=== PATIENT | male | born 1975 | race American Indian/Alaskan Native ===

== ENCOUNTER 2017-10-13 18:08 | Emergency (ER) | payer SELFPAY ==
[2017-10-13 18:24] VITALS: BP 162/99
[2017-10-13] MEDS ORDERED: TORADOL IM ONE (19:48)
--- NOTE | 2017-10-13 19:55 | Emergency Department Report ---
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 felt a strain and had immediate back spasm since has attempted Tylenol with minimal improvement pain is 4/10 radiating to left lower extremity there is no numbness no tingling or weakness no loss of decrease in bowel or bladder function this flash same location as usual flare same intensity MD Complaint: back pain, back injury Onset/Timin -: week(s) Similar Symptoms Previously: Yes Place: work Radiation: left leg Severity: moderate Severity scale (0 -10): 4 Quality: burning, aching Consistency: intermittent Improves With: other (rest heat application ) Worsens With: movement, walking, other (bending and twisting ) Context: while lifting, turning/twisting Associated Symptoms: denies: weakness, chest pain, numbness, difficulty walking , difficulty urinating, diaphoresis, incontinence, fever/chills, constipation, headaches, abdominal pain, loss of appetite, malaise, nausea/vomiting, seizure, shortness of breath - Related Data Previous Rx's Medication Instructions Recorded Last Taken Type Cyclobenzaprine [Flexeril] 10 mg PO BID PRN #20 tablet 10/13/17 Unknown Rx Menthol/Camphor [Montgomery Hensel 1 applicatio TP TID PRN #1 tube 10/13/17 Unknown Rx Ointment] Naproxen [Naprosyn] 500 mg PO BID #30 tablet 10/13/17 Unknown Rx Allergies Allergy/AdvReac Type Severity Reaction Status Date / Time No Known Allergies Allergy Unverified 10/13/17 18:24 ED Review of Systems ROS: Stated complaint: BACK PAIN/SPASMS Other details as noted in HPI Constitutional: denies: chills, fever Eyes: denies: eye pain, eye discharge, vision change ENT: denies: ear pain, throat pain Respiratory: denies: cough, shortness of breath, wheezing Cardiovascular: denies: chest pain, palpitations Endocrine: no symptoms reported Gastrointestinal: denies: abdominal pain, nausea, diarrhea Genitourinary: denies: urgency, dysuria Musculoskeletal: back pain, arthralgia, myalgia Skin: denies: rash, lesions Neurological: denies: weakness, numbness, paresthesias, abnormal gait, vertigo Psychiatric: denies: anxiety, depression Hematological/Lymphatic: denies: easy bleeding, easy bruising ED Past Medical Hx - Past Medical History Hx Hypertension: Yes Additional medical history: recurrent back pain with sciatica - Surgical History Past Surgical History?: Yes Additional Surgical History: right knee - Social History Smoking Status: Current Every Day Smoker Substance Use Type: Alcohol - Medications Home Medications: Home Medications Medication Instructions Recorded Confirmed Last Taken Type Cyclobenzaprine [Flexeril] 10 mg PO BID PRN #20 tablet 10/13/17 Unknown Rx Menthol/Camphor [Montgomery Hensel 1 applicatio TP TID PRN #1 tube 10/13/17 Unknown Rx Ointment] Naproxen [Naprosyn] 500 mg PO BID #30 tablet 10/13/17 Unknown Rx ED Physical Exam - General Limitations: No Limitations General appearance: alert, in no apparent distress - Head Head exam: Present: atraumatic, normocephalic - Eye Eye exam: Present: normal appearance - ENT ENT exam: Present: mucous membranes moist - Neck Neck exam: Present: normal inspection - Respiratory Respiratory exam: Present: normal lung sounds bilaterally. Absent: respiratory distress - Cardiovascular Cardiovascular Exam: Present: regular rate, normal rhythm. Absent: systolic murmur, diastolic murmur, rubs, gallop - GI/Abdominal GI/Abdominal exam: Present: soft, normal bowel sounds - Rectal Rectal exam: Present: deferred - Extremities Exam Extremities exam: Present: normal inspection, full ROM, tenderness, normal capillary refill. Absent: pedal edema, joint swelling, calf tenderness - Back Exam Back exam: Present: tenderness (no posterior vertebral point tenderness mild paraspinus muscle tenderness to deep palpation post straight leg raise left, ) , muscle spasm, paraspinal tenderness. Absent: CVA tenderness (R), CVA tenderness (L), vertebral tenderness, rash noted - Expanded Back Exam Expanded Back exam: Absent: saddle anesthesia Back exam: Positive Straight Leg Raise: Left, Negative Straight Leg Raising: Right ED Course Vital Signs 10/13/17 18:21 Temperature 98.8 F Pulse Rate 68 Respiratory 18 Rate Blood Pressure 162/99 O2 Sat by Pulse 99 Oximetry ED Medical Decision Making - Medical Decision Making Improved with NSAIDs, no symptoms of cauda equina plan DC to home in stable condition with NSAID and muscle relaxants back exercises and moist heat therapy follow with PCP in 2-3 days patient verbalizes understanding and agreement discharge plan will be DC'd to home in stable condition at this time Critical care attestation.: If time is entered above; I have spent that time in minutes in the direct care of this critically ill patient, excluding procedure time. ED Disposition Clinical Impression: Lumbar strain Qualifiers: Encounter type: initial encounter Qualified Code(s): S39.012A - Strain of muscle, fascia and tendon of lower back, initial encounter Disposition: DC-01 TO HOME OR SELFCARE Is pt being admited?: No Does the pt Need Aspirin: No Condition: Good Instructions: Low Back Strain (ED), Core Strengthening Exercises (GEN), Heat Pack Application (ED) Prescriptions: Cyclobenzaprine [Flexeril] 10 mg PO BID PRN #20 tablet PRN Reason: Muscle Spasm Menthol/Camphor [Montgomery Hensel Ointment] 1 applicatio TP TID PRN #1 tube PRN Reason: Pain , Severe (7-10) Naproxen [Naprosyn] 500 mg PO BID #30 tablet [facility] - [facility]5 Days Forms: Work/School Release Form(ED) Time of Disposition: 19:59
== END 2017-10-13 20:10 | disposition home or self-care (01) ==
LOC: ED 18:08
DX: S39.012A Strain of muscle, fascia and tendon of lower back, initial encounter (principal); I10 Essential (primary) hypertension; F17.200 Nicotine dependence, unspecified, uncomplicated; M54.40 Lumbago with sciatica, unspecified side; X50.1XXA Overexertion from prolonged static or awkward postures, initial encounter; Y93.89 Activity, other specified; Y92.009 Unspecified place in unspecified non-institutional (private) residence as the place of occurrence of the external cause; Y99.8 Other external cause status
CPT/HCPCS: 96372; 99282; J1885

== ENCOUNTER 2019-02-09 10:06 | Emergency (ER) | payer OTHER ==
--- NOTE | 2019-02-09 10:26 | Event Note ---
ED Screening Note ED Screening Note: pt presents for penile discharge no dysuria no pain or swelling testicles no abd pain no v/d no fever hx of HTN, was previously on amlodipine, has not taken it since 3 years ago BP is 200/116 in triage This initial assessment/diagnostic orders/clinical plan/treatment(s) is/are subject to change based on patients health status, clinical progression and re- assessment by fellow clinical providers in the ED. Further treatment and workup at subsequent clinical providers discretion. Patient/guardian urged not to elope from the ED as their condition may be serious if not clinically assessed and managed.
[2019-02-09] MEDS ORDERED: LIDOCAINE-MPF (1%) 10 MG/1 ML VIAL 5 ML INFILTRATI ONE (10:46)
[2019-02-09] MEDS ORDERED: cloNIDine 0.1 MG TAB PO ONE (10:46)
[2019-02-09] MEDS ORDERED: AZITHROMYCIN 1 GM ORAL PWDR PACKET PO ONE (10:46)
--- NOTE | 2019-02-09 10:55 | Emergency Department Report ---
HPI - General Chief Complaint: Urogenital-Male Time Seen by Provider: 02/09/19 10:40 - HPI HPI: 42-year-old -[place] male presents to the emergency department with a complaint of a 3 to four-day history of some penile discharge. He says that is mostly clear but sometimes it has a yellowish to white appearance. He denies any genital lesions or rash. He denies any burning with urination. The patient is sexually active and says it is with one partner. No previous history of any STD. He does present with very elevated blood pressure with a history of hypertension but he is not on any medications. He is a tobacco smoker. He also admits to some caffeine intake. He denies any headache, vision change, chest pain, shortness of breath. He has not taken anything for her symptoms prior to presentation today. ED Past Medical Hx - Past Medical History Previous Medical History?: No Hx Hypertension: Yes Additional medical history: recurrent back pain with sciatica - Surgical History Past Surgical History?: Yes Additional Surgical History: right knee - Social History Smoking Status: Current Every Day Smoker Substance Use Type: None - Medications Home Medications: Home Medications Medication Instructions Recorded Confirmed Last Taken Type Cyclobenzaprine [Flexeril] 10 mg PO BID PRN #20 tablet 10/13/17 Unknown Rx Menthol/Camphor [[place] 1 applicatio TP TID PRN #1 tube 10/13/17 Unknown Rx Ointment] Naproxen [Naprosyn] 500 mg PO BID #30 tablet 10/13/17 Unknown Rx Amlodipine Besylate [Norvasc] 5 mg PO QDAY #30 tablet 02/09/19 Unknown Rx ED Review of Systems ROS: Stated complaint: BLADDER INFECTION/DISCHARGE Other details as noted in HPI Comment: All other systems reviewed and negative Constitutional: denies: chills, fever Eyes: denies: vision change Respiratory: denies: shortness of breath Cardiovascular: denies: chest pain Gastrointestinal: denies: abdominal pain Genitourinary: discharge. denies: dysuria Skin: denies: rash Neurological: denies: headache Physical Exam - Physical Exam Vital Signs: Vital Signs 02/09/19 10:23 Temperature 98.4 F Pulse Rate 93 H Respiratory 18 Rate Blood Pressure 200/116 O2 Sat by Pulse 99 Oximetry Physical Exam: GENERAL: The patient is well-developed well-nourished. HENT: Normocephalic. Atraumatic. Patient has moist mucous membranes. EYES: Extraocular motions are intact. NECK: Supple. Trachea is midline. ABDOMEN: There is no abdominal distention. SKIN: Skin is warm and dry. NEURO: The patient is awake, alert, and oriented. The patient is cooperative. The patient has no focal neurologic deficits. Normal speech. MUSCULOSKELETAL: There is no tenderness or deformity. There is no evidence of acute injury. deferred ED Course Vital Signs 02/09/19 10:23 Temperature 98.4 F Pulse Rate 93 H Respiratory 18 Rate Blood Pressure 200/116 O2 Sat by Pulse 99 Oximetry ED Medical Decision Making - Medical Decision Making This patient presents with the complaint of some penile discharge. He was found have very elevated blood pressure with what appears to be some medication noncompliance. He has no other physical complaints that would be related to the hypertension including any chest pain, headache or shortness of breath. He was given a dose of Catapres and decrease the systolic pressure came down. The patient was empirically treated with some Rocephin and azithromycin for his penile discharge and he will avoid any sexual contact for at least one week. The patient has been started on Norvasc. We discussed tobacco cessation and staying away from foods that are high in salt and caffeinated products. The patient will keep a blood pressure log. He will follow up with primary care and will return to the ER with any worsening of his symptoms or any acute distress. Critical Care Time: No Critical care attestation.: If time is entered above; I have spent that time in minutes in the direct care of this critically ill patient, excluding procedure time. ED Disposition Clinical Impression: Asymptomatic hypertensive urgency, Urethritis Disposition: DC-01 TO HOME OR SELFCARE Is pt being admited?: No Condition: Stable Instructions: Nonspecific Urethritis in Men (ED), Hypertension (ED) Additional Instructions: Please follow-up with a primary care physician in the next few days. Return to the emergency Department with any worsening of your symptoms or any acute distress. Please avoid any sexual intercourse or contact for at least one week after getting your medications here today. I am starting you on a blood pressure medication called Norvasc/amlodipine that is taken once per day, usually in the morning. Keep a blood pressure log. Please quit smoking. Try and stay away from foods that are high in salt and caffeinated products to help with your blood pressure. Prescriptions: Amlodipine Besylate [Norvasc] 5 mg PO QDAY #30 tablet Referrals: SHADY MYERS MD [Staff Physician] - 2-3 Days PRIMARY CARE, [Primary Care Provider] - 2-3 Days [facility] [Outside] - 2-3 Days Forms: STI Treatment and Prevention, Work/School Release Form(ED) Time of Disposition: 11:51
[2019-02-09 11:37] VITALS: BP 186/122
[2019-02-09] MEDS ORDERED: amLODIPine 5 MG TAB PO ONE (11:40)
== END 2019-02-09 12:07 | disposition home or self-care (01) ==
LOC: ED 10:06
DX: N34.2 Other urethritis (principal); I16.0 Hypertensive urgency; I10 Essential (primary) hypertension; F17.200 Nicotine dependence, unspecified, uncomplicated
CPT/HCPCS: 96372; 99282; J0696

== ENCOUNTER 2019-05-02 19:38 | Emergency (ER) | payer SELFPAY ==
[2019-05-02 20:00] VITALS: BP 191/111
--- NOTE | 2019-05-02 20:30 | Emergency Department Report ---
ED Back Pain/Injury HPI - General Chief Complaint: Dyspnea/Respdistress Stated Complaint: SHORTNESS OF BREATH, UPPER RIGHT SHOULDER PAIN Time Seen by Provider: 05/02/19 20:23 Source: patient Limitations: No Limitations - History of Present Illness Initial Comments: Mr. Whelan is a very pleasant 44-year-old male who presents with his with elevated blood pressure right shoulder pain and right upper back pain. Pain feels achy like gas. It was worse with certain position. Mild pain. Pain has resolved with position change. He denies shortness of breath. Denies chest pain. He is concerned because he has not taken his blood pressure medication in quite some time. He has been under a lot of stress. No history of heart disease. No history of diabetes mellitus. No history of dyslipidemia. Does not have a PCP. MD Complaint: back pain -: Gradual, days(s) (intermittent for several days) Place: home Radiation: other (right arm) Severity: mild Quality: dull, aching Consistency: now resolved Improves With: other (position change) Associated Symptoms: denies other symptoms - Related Data Previous Rx's Medication Instructions Recorded Last Taken Type Cyclobenzaprine [Flexeril] 10 mg PO BID PRN #20 tablet 10/13/17 Unknown Rx Menthol/Camphor [[place] 1 applicatio TP TID PRN #1 tube 10/13/17 Unknown Rx Ointment] Naproxen [Naprosyn] 500 mg PO BID #30 tablet 10/13/17 Unknown Rx Amlodipine Besylate [Norvasc] 5 mg PO QDAY #30 tablet 02/09/19 Unknown Rx amLODIPine 10 mg PO DAILY #30 tab 05/02/19 Unknown Rx hydroCHLOROthiazide [HCTZ] 25 mg PO QDAY #30 tablet 05/02/19 Unknown Rx Allergies Allergy/AdvReac Type Severity Reaction Status Date / Time No Known Allergies Allergy Verified 05/02/19 19:41 ED Review of Systems ROS: Stated complaint: SHORTNESS OF BREATH, UPPER RIGHT SHOULDER PAIN Other details as noted in HPI Comment: All other systems reviewed and negative Constitutional: denies: fever, malaise Respiratory: denies: cough, shortness of breath Cardiovascular: denies: chest pain Musculoskeletal: back pain ED Past Medical Hx - Past Medical History Previous Medical History?: Yes Hx Hypertension: Yes Additional medical history: recurrent back pain with sciatica - Surgical History Past Surgical History?: Yes Additional Surgical History: right knee - Social History Smoking Status: Current Every Day Smoker Substance Use Type: None - Medications Home Medications: Home Medications Medication Instructions Recorded Confirmed Last Taken Type Cyclobenzaprine [Flexeril] 10 mg PO BID PRN #20 tablet 10/13/17 Unknown Rx Menthol/Camphor [[place] 1 applicatio TP TID PRN #1 tube 10/13/17 Unknown Rx Ointment] Naproxen [Naprosyn] 500 mg PO BID #30 tablet 10/13/17 Unknown Rx Amlodipine Besylate [Norvasc] 5 mg PO QDAY #30 tablet 02/09/19 Unknown Rx amLODIPine 10 mg PO DAILY #30 tab 05/02/19 Unknown Rx hydroCHLOROthiazide [HCTZ] 25 mg PO QDAY #30 tablet 05/02/19 Unknown Rx ED Physical Exam - General Limitations: No Limitations General appearance: alert, in no apparent distress - Head Head exam: Present: atraumatic, normocephalic - Eye Eye exam: Present: normal appearance - ENT ENT exam: Present: mucous membranes moist - Neck Neck exam: Present: normal inspection, full ROM - Respiratory Respiratory exam: Present: normal lung sounds bilaterally. Absent: respiratory distress, wheezes, rales, rhonchi - Cardiovascular Cardiovascular Exam: Present: regular rate, normal rhythm, normal heart sounds. Absent: systolic murmur, diastolic murmur, rubs, gallop - GI/Abdominal GI/Abdominal exam: Present: soft, normal bowel sounds. Absent: distended, tenderness, guarding, rebound - Rectal Rectal exam: Present: deferred - Extremities Exam Extremities exam: Present: normal inspection - Back Exam Back exam: Present: normal inspection - Neurological Exam Neurological exam: Present: alert, oriented X3 - Psychiatric Psychiatric exam: Present: normal affect, normal mood - Skin Skin exam: Present: warm, dry, intact, normal color. Absent: rash ED Course Vital Signs 05/02/19 19:42 Temperature 98.0 F Pulse Rate 70 Respiratory 18 Rate Blood Pressure 191/111 O2 Sat by Pulse 100 Oximetry ED Medical Decision Making - EKG Data EKG shows normal: sinus rhythm, axis, intervals, QRS complexes Rate: normal - EKG Data Interpretation: other (prolonged GA interval) - Medical Decision Making Mr. Whelan is a 44-year-old male who presents with right upper back pain radiating to the right arm. Differential diagnosis includes ACS, dissection, PE, musculoskeletal pain. Heart score is 2. Atypical for ACS. However I do fe el in this situation he will need outpatient cardiac stress testing. He is currently pain-free now he understands to call 911 he develops severe pain in the back shortness of breath or chest pain. Also provided outpatient medicine physician referral. I have provided a prescription for amlodipine and HCTZ Critical care attestation.: If time is entered above; I have spent that time in minutes in the direct care of this critically ill patient, excluding procedure time. ED Disposition Clinical Impression: Hypertension, Back pain Disposition: DC-01 TO HOME OR SELFCARE Is pt being admited?: No Does the pt Need Aspirin: No Condition: Stable Instructions: Hypertension (ED) Prescriptions: amLODIPine 10 mg PO DAILY #30 tab hydroCHLOROthiazide [HCTZ] 25 mg PO QDAY #30 tablet Referrals: CAMELIA MARTINEZ MD [Staff Physician] - 3-5 Days VAUGHN DING MD [Staff Physician] - 3-5 Days
== END 2019-05-02 21:15 | disposition home or self-care (01) ==
LOC: ED 19:38
DX: I10 Essential (primary) hypertension (principal); M54.89 Other dorsalgia; F17.200 Nicotine dependence, unspecified, uncomplicated; Z79.899 Other long term (current) drug therapy
CPT/HCPCS: 93005; 93010; 99282

== ENCOUNTER 2019-09-05 01:41 | Emergency (ER) | payer SELFPAY ==
[2019-09-05 01:47] VITALS: BP 154/98
[2019-09-05 02:07] LABS: Bilirubin,Urine NEG (Negative); Blood,Urine NEG (Negative); Color,Urine Yellow (Yellow); Mucus,Urine FEW /HPF; Protein,Urine <15 mg/dL mg/dL (Negative); Urobilinogen,Urine < 2.0 mg/dL (<2.0)
[2019-09-05 02:08] LABS: Basophils # (Auto) 0.1 K/mm3 (0.0-0.1); Eosinophils # (Auto) 0.3 K/mm3 (0.0-0.4); Hematocrit 43.4 % (35.5-45.6); Lymphocytes # (Auto) 2.9 K/mm3 (1.2-5.4); Lymphocytes % (Auto) 34.5 % (13.4-35.0); Mean Corpuscular HGB Conc 35 % (32-34); Mean Corpuscular Volume 90 fl (84-94); Monocytes % (Auto) 11.7 % (0.0-7.3); Platelet Count 190 K/mm3 (140-440); Red Blood Count 4.84 M/mm3 (3.65-5.03); Red Cell Distribution Width 13.9 % (13.2-15.2)
[2019-09-05 02:28] LABS: Alanine Aminotransferase 25 units/L (7-56); Albumin 4.5 g/dL (3.9-5); BUN/Creatinine Ratio 17; Blood Urea Nitrogen 19 mg/dL (9-20); Calcium 9.5 mg/dL (8.4-10.2); Hemolysis Index 37
[2019-09-05] MEDS ORDERED: MORPHINE 4 MG/1 ML INJ IV ONE (03:30)
[2019-09-05] MEDS ORDERED: ONDANSETRON 4 MG/2 ML INJ IV ONE (03:31)
[2019-09-05] MEDS ORDERED: ONDANSETRON 4 MG/2 ML INJ ONE (03:34)
--- NOTE | 2019-09-05 03:43 | XRay Report ---
ABDOMEN 2 VIEWS INDICATION / CLINICAL INFORMATION: Unspecified abdominal pain. COMPARISON: None available. FINDINGS: TUBES / LINES: None. BOWEL GAS PATTERN: No significant abnormality. FREE AIR / EXTRALUMINAL GAS: None seen. ADDITIONAL FINDINGS: Punctate calcifications are seen along the expected location of the pancreas, co nsistent with chronic pancreatitis. IMPRESSION: 1. No acute findings. 2. Additional findings as above. Signer Name: Bhupinder Mckeon MD Signed: 09/05/2019 3:38 AM Workstation Name: [id number]
--- NOTE | 2019-09-05 03:56 | Emergency Department Report ---
HPI - General Chief Complaint: Abdominal Pain Time Seen by Provider: 09/05/19 02:56 - HPI HPI: 44-year-old -[place] female presents to the emergency department with a complaint of upper abdominal pain, nausea and vomiting that started just prior t o presentation and woke her from sleep. Patient had one episode of vomiting. He says he ate some rc greens from [employer] for lunch this afternoon and thinks this is what caused his symptoms. He denies any fever, diarrhea. He has not taken anything for symptoms prior to presentation. He has a past medical history of hypertension. No recent travel or sick contacts at home. ED Past Medical Hx - Past Medical History Previous Medical History?: Yes Hx Hypertension: Yes Additional medical history: recurrent back pain with sciatica - Surgical History Past Surgical History?: Yes Additional Surgical History: right knee - Social History Smoking Status: Current Every Day Smoker Substance Use Type: None - Medications Home Medications: Home Medications Medication Instructions Recorded Confirmed Last Taken Type Cyclobenzaprine [Flexeril] 10 mg PO BID PRN #20 tablet 10/13/17 Unknown Rx Menthol/Camphor [[place] 1 applicatio TP TID PRN #1 tube 10/13/17 Unknown Rx Ointment] Naproxen [Naprosyn] 500 mg PO BID #30 tablet 10/13/17 Unknown Rx Amlodipine Besylate [Norvasc] 5 mg PO QDAY #30 tablet 02/09/19 Unknown Rx amLODIPine 10 mg PO DAILY #30 tab 05/02/19 Unknown Rx hydroCHLOROthiazide [HCTZ] 25 mg PO QDAY #30 tablet 05/02/19 Unknown Rx ED Review of Systems ROS: Stated complaint: ABD PAIN Other details as noted in HPI Comment: All other systems reviewed and negative Constitutional: denies: chills, fever Eyes: denies: eye pain, vision change ENT: denies: ear pain, throat pain Respiratory: denies: cough, shortness of breath Cardiovascular: denies: chest pain, palpitations Gastrointestinal: abdominal pain, nausea, vomiting Genitourinary: denies: dysuria, discharge Musculoskeletal: denies: back pain, arthralgia Skin: denies: rash, lesions Neurological: denies: headache, weakness Physical Exam - Physical Exam Vital Signs: Vital Signs 09/05/19 01:45 Temperature 98.1 F Pulse Rate 82 Respiratory 18 Rate Blood Pressure 154/98 O2 Sat by Pulse 100 Oximetry Physical Exam: GENERAL: The patient is well-developed well-nourished. HENT: Normocephalic. Atraumatic. Patient has moist mucous membranes. EYES: Extraocular motions are intact. NECK: Supple. Trachea is midline. CHEST/LUNGS: Clear to auscultation. There is no respiratory distress noted. HEART/CARDIOVASCULAR: Regular. There is no tachycardia. ABDOMEN: Abdomen is soft. There is upper abdominal tenderness to palpation worst in the epigastrium and right upper quadrant. No guarding. Patient has normal bowel sounds. SKIN: Skin is warm and dry. NEURO: The patient is awake, alert, and oriented. The patient is cooperative. The patient has no focal neurologic deficits. Normal speech. MUSCULOSKELETAL: There is no tenderness or deformity. There is no evidence of acute injury. ED Course Vital Signs 09/05/19 01:45 Temperature 98.1 F Pulse Rate 82 Respiratory 18 Rate Blood Pressure 154/98 O2 Sat by Pulse 100 Oximetry - Consultations Consultation #1: I spoke with the television writer on-call, Dr. Benito, regarding the patient's finding of cholelithiasis with possible choledocholithiasis. We discussed the patient's labs and ultrasound results. Since the patient is feeling improved, has normal labs, and has normal vitals including being afebrile, the patient can be discharged home as long as he is able to eat without a return of pain or v omiting. The patient should then follow-up on Saturday with [facility] and they can order an outpatient MRI/MRCP if necessary. 09/05/19 05:43 ED Medical Decision Making - Lab Data Result diagrams: 09/05/19 01:50 09/05/19 01:50 - Radiology Data Radiology results: report reviewed ULTRASOUND ABDOMEN, LIMITED (RIGHT UPPER QUADRANT) INDICATION: Upper abdominal pain. COMPARISON: Abdominal radiographs from earlier today. FINDINGS: Pancreas: Obscured by bowel gas. Liver: Enlarged, measuring 17.7 cm in length without an additional significant abnormality. Gallbladder: Multiple stones are seen within the gallbladder along with sludge. The gallbladder wall is mildly thickened and measures 3.5 mm. No pericholecystic fluid. The sonographic Wooten sign was negative. Bile ducts: The common duct is mildly to moderately dilated and measures up to 13 mm with possible choledocholithiasis. Free fluid: None. Additional Findings: None. IMPRESSION: 1. Cholelithiasis without sonographic evidence of acute cholecystitis. 2. Dilated common duct with possible choledocholithiasis. - Medical Decision Making Patient presents with some acute upper abdominal pain, nausea and vomiting since this evening. Patient's labs are unremarkable. Abdominal x-ray shows nonspecific nonobstructive bowel gas. A upper abdominal ultrasound was done that shows cholelithiasis and concern for choledocholithiasis with a dilated common bile duct. The patient's labs are unremarkable including no leukocytosis, normal LFTs, no elevation in the bilirubin or alk phos. I spoke with gastroenterology, as we are unable to get an MRCP this weekend, and given the patient's negative labs and improvement of his symptoms, the patient can be discharged home with outpatient follow-up. All this information has been given to the patient and he will follow-up with [facility] gastro[facility] on Saturday. In the meantime, the patient will return to the emergency department with any return of his abdominal pain, vomiting, or with any acute distress. Critical Care Time: No Critical care attestation.: If time is entered above; I have spent that time in minutes in the direct care of this critically ill patient, excluding procedure time. ED Disposition Clinical Impression: Common bile duct dilation Cholelithiasis Qualifiers: Cholelithiasis location: gallbladder Cholecystitis presence: without cholecystitis Disposition: - TO HOME OR SELFCARE Is pt being admited?: No Condition: Stable Instructions: Biliary Colic (ED), Acute Abdominal Pain (ED) Additional Instructions: Please follow-up with a television writer at [facility] on Saturday regarding your gallstones and the ultrasound finding of a dilated common bile duct. Return to the emergency department with any worsening of your symptoms, development of fever, nausea or vomiting, jaundice (yellow hue of skin), or with any acute distress. Referrals: TIFFANY BENITO MD [Staff Physician] - 09/07/19 (Please follow-up with a television writer at [facility] on Saturday regarding your gallstones and your ultrasound finding of a dilated common bile duct.) Time of Disposition: 06:00
--- NOTE | 2019-09-05 05:19 | Ultrasound Report ---
ULTRASOUND ABDOMEN, LIMITED (RIGHT UPPER QUADRANT) INDICATION: Upper abdominal pain. COMPARISON: Abdominal radiographs from earlier today. FINDINGS: Pancreas: Obscured by bowel gas. Liver: Enlarged, measuring 17.7 cm in length without an additional significant abnormality. Gallbladder: Multiple stones are seen within the gallbladder along with sludge. The gallbladder wall is mildly thickened and measures 3.5 mm. No pericholecystic fluid. The sonographic Wooten sign was ne gative. Bile ducts: The common duct is mildly to moderately dilated and measures up to 13 mm with possible ch oledocholithiasis. Free fluid: None. Additional Findings: None. IMPRESSION: 1. Cholelithiasis without sonographic evidence of acute cholecystitis. 2. Dilated common duct with possible choledocholithiasis. Signer Name: Bhupinder Mckeon MD Signed: 09/05/2019 5:15 AM Workstation Name: [id number]
== END 2019-09-05 06:24 | disposition home or self-care (01) ==
LOC: ED 01:41
DX: K80.80 Other cholelithiasis without obstruction (principal)
CPT/HCPCS: 36415; 74019; 76705; 80053; 81001; 83690; 85025; 96374; 96375; 99284; J2270; J2405

== ENCOUNTER 2019-09-08 04:28 | Emergency (ER) | payer SELFPAY ==
[2019-09-08 04:35] VITALS: BP 149/95
[2019-09-08 05:06] LABS: Bilirubin,Urine NEG (Negative); Blood,Urine NEG (Negative); Color,Urine Yellow (Yellow); Protein,Urine <15 mg/dL mg/dL (Negative); Urobilinogen,Urine < 2.0 mg/dL (<2.0)
[2019-09-08 05:59] LABS: Basophils % (Auto) 0.6 % (0.0-1.8); Eosinophils # (Auto) 0.1 K/mm3 (0.0-0.4); Eosinophils % (Auto) 1.1 % (0.0-4.3); Hematocrit 44.6 % (35.5-45.6); Hemoglobin 15.2 gm/dl (11.8-15.2); Lymphocytes # (Auto) 1.5 K/mm3 (1.2-5.4); Lymphocytes % (Auto) 16.8 % (13.4-35.0); Mean Corpuscular HGB Conc 34 % (32-34); Mean Corpuscular Volume 88 fl (84-94); Monocytes # (Auto) 0.7 K/mm3 (0.0-0.8); Monocytes % (Auto) 7.7 % (0.0-7.3); Platelet Count 209 K/mm3 (140-440); Red Blood Count 5.07 M/mm3 (3.65-5.03); Red Cell Distribution Width 13.6 % (13.2-15.2)
[2019-09-08 06:15] LABS: Alanine Aminotransferase 40 units/L (7-56); Albumin 4.7 g/dL (3.9-5); BUN/Creatinine Ratio 17; Blood Urea Nitrogen 15 mg/dL (9-20); Calcium 9.5 mg/dL (8.4-10.2); Hemolysis Index 4
== END 2019-09-08 08:45 | disposition home or self-care (01) ==
LOC: ED 04:28
DX: K80.20 Calculus of gallbladder without cholecystitis without obstruction (principal); K59.00 Constipation, unspecified; I10 Essential (primary) hypertension; F17.200 Nicotine dependence, unspecified, uncomplicated
CPT/HCPCS: 36415; 76705; 80053; 81001; 83690; 85025; 96374; 96375; 99284; J1170; J2270; J2405; J7030